=== PATIENT | male | born 1945 | race Caucasian/White ===

== ENCOUNTER 2018-10-22 07:25 | Inpatient (IN) ==
--- NOTE | 2018-10-22 08:07 | History & Physical Report ---
Date of Encounter: 10/22/18 Time of Encounter: 08:06 24 Hour HP Update - Instructions Instructions: If the History and Physical is less than 30 days old and was completed prior to A.M. admission and or procedure and has NOT been updated on calendar day of procedure please complete this update prior to performing procedure. - Update Patient reports changes in Medical Condition: No Changes in examination, assessment, or condition: No Changes in Medication: No Preop tests/diagnostics Reviewed: Yes Surgery Remains Indicated: Yes Consent for Planned Operative Procedure(s) Verified: Yes
[2018-10-22] MEDS ORDERED: Albuterol 2.5 MG/3 ML NEBULIZER IH ONE (08:22)
[2018-10-22] MEDS ORDERED: CeFAZolin Syr 2,000MG/20 ML 2,000 MG/20 ML SYRINGE IVPB ONE (08:22)
[2018-10-22] MEDS ORDERED: Famotidine 20 MG/2 ML VIAL IVP ONE (08:24)
[2018-10-22] MEDS ORDERED: Celecoxib 100 MG CAPSULE PO ONE (08:25)
[2018-10-22] MEDS ORDERED: Pregabalin 75 MG CAPSULE PO ONE (08:25)
[2018-10-22] MEDS ORDERED: Acetaminophen IV 1,000 MG/100 ML INFUS..BTL IVPB ONE (08:25)
[2018-10-22] MEDS ORDERED: Ringers Solution, Lactated 1,000 ML IVC SCH ×2 (08:30→12:41)
--- NOTE | 2018-10-22 08:37 | Anesthesia Evaluation PreOp ---
Date of Encounter: 10/22/18 Time of Encounter: 08:35 - Past History Planned Operation: Left Total Shoulder Reverse Ball Cardiac History: HTN, Hyperlipidemia Pulmonary History: Smoker GEOSPATIAL SCIENTIST History: Other (Spinal Stenosis Diabetic Neuropathy) Other Medical History: Diabetes Type II, GERD, Other (CLL Stage 0 not treated) Anesthesia History: No Prior Anesthetic Complications Alcohol Use: heavy Drug use: none Medications and Allergies Allopurinol [Zyloprim 100 MG] 100 mg PO QID 08/14/18 [History] Aspirin [Adult Aspirin] 81 mg PO DAILY 08/14/18 [History] Finasteride [Proscar] 5 mg PO DAILY 08/14/18 [History] Losartan [Cozaar] 12.5 mg PO DAILY 08/14/18 [History] [place]-3 Fatty Acids [[place]-3] 660 mg PO DAILY 08/14/18 [History] Omeprazole [PriLOSEC] 20 mg PO DAILY 08/14/18 [History] Allergy/AdvReac Type Severity Reaction Status Date / Time No Known Allergies Allergy Verified 10/15/18 12:13 - Meds/Allergy Pre-op Review Medications Reviewed: Yes Allergies Reviewed: Yes Beta Blockers on Current Med List: No Anesthesia Results - Labs Laboratory Tests 10/15/18 10/15/18 12:30 12:30 Hgb 14.7 Hct 43.3 Plt Count 190 Sodium 136 Potassium 4.3 BUN 16 Creatinine 0.76 - Imaging EKG: report reviewed (SR) Anesthesia Exam O2 Sat Height 1.68 m Height 1.68 m Weight 84.822 kg Weight 84.822 kg O2 Sat by Pulse Oximetry 95 O2 Sat by Pulse Oximetry 95 Vital Signs Temp Pulse Resp BP Pulse Ox 98.0 F 65 18 166/84 95 10/22/18 07:57 10/22/18 07:57 10/22/18 07:57 10/22/18 07:57 10/22/18 07:57 Height: 5'6 Weight: 187 lbs NPO (# of Hours): MN Pain Scale: 0 - HEENT Pupil (Motor): Pupils equal, EOMI Mallampati: III Teeth: Normal Oral Opening: Less than or equal to 3 - GEOSPATIAL SCIENTIST LOC: Oriented GEOSPATIAL SCIENTIST Motor: Normal RUE, Normal LUE, Normal RLE, Normal LLE, Normal Face GEOSPATIAL SCIENTIST Sensory: Normal: RUE, LUE, Face, Deficit: RLE, LLE (paresthesia) - Cardiac Rhythm: Regular Murmur: None JVD: No Carotid Bruit: No - Pulmonary Breath Sounds: bilateral Clear Respiratory Effort: Symmetrical Anesthesia Assess/Plan ASA Score: 3 (HTN DM Tobacco CLL) Level of consciousness: Cooperative, Oriented Anesthetic Plan: General, Regional Nerve Block Regional Nerve Block Plan: Supracervical Plexus Autologous Blood: No Monitoring Plan: Standard Monitors Recovery Plan: PACU (Discussed GA, Brachial Plexus Block, agrees to proceed)
[2018-10-22] MEDS ORDERED: *HR* FentaNYL (PF) 100 MCG/2 ML VIAL ONE (08:52)
[2018-10-22] MEDS ORDERED: *HR* Propofol 200 MG/20 ML VIAL IVP ONE (08:52)
[2018-10-22] MEDS ORDERED: Lidocaine -MPF 2% 2 ML VIAL ONE (08:54)
[2018-10-22] MEDS ORDERED: Lidocaine -MPF 4% 5 ML AMPUL ONE (08:56)
[2018-10-22] MEDS ORDERED: Ropivacaine/PF 0.5% 30 ML VIAL ONE (09:09)
[2018-10-22] MEDS ORDERED: Tetracaine/PF 20 MG/2 ML AMPUL ONE (09:09)
[2018-10-22] MEDS ORDERED: ROPIVACAINE/PF/NS 0.25% 1 EACH SYRINGE INTRAART ONE (09:09)
[2018-10-22] MEDS ORDERED: *HR* Midazolam HCl 2 MG/2 ML VIAL ONE (09:13)
[2018-10-22] MEDS ORDERED: Ethanol\\Acetic Acid\\Na Ace\\Ben 1,000 ML IRRIG.SOLN IR ONE (09:23)
--- NOTE | 2018-10-22 09:37 | Anesthesia Procedures ---
Date of Encounter: 10/22/18 Time of Encounter: 08:35 Procedures: Anesthesia - Nerve Block Procedure Date: 10/22/18 Time: 09:15 Pre-op Diagnosis: Left Shoulder Arthropathy Surgical Procedure: Left Total Shoulder Reverse Ball Checklist: Correct Patient Identifier Correct side: Left Blood Thinner: No Monitor Applied: EKG, BP, Pulse Oximetry Supplemental Oxygen via Nasal Cannula (L/min): 2 Sedation: Versed (mg): 1 Sedation: Fentanyl (mcg): 100 Indication: Post Op Analgesia Pre-op Neuro Deficits: No Block Type: Supraclavicular Catheter placed: No Sterile Technique: Yes Ultrasound used: Yes Anatomy identified: Yes Visual spread of Local: Yes Neuro Stimulation: No Blood on Needle Aspiration: No Smooth Injection of Local: Yes Pain with Injection of Local: No Prep: Chlorhexadine Needle: 22 x 50 mm Stimuplex Local: Tetracaine, Ropivacaine, Other Volume (cc): 30cc 0.5%/15cc 0.25% Number of Attempts: 1 Complications: None/effective block Vitals: Vital Signs/O2 Sat/Glucose, Most Current Temp Pulse Resp BP Pulse Ox 10/22/18 09:15 68 165/84 98 10/22/18 08:29 98.0 F 65 18 166/84 95 10/22/18 07:57 98.0 F 65 18 166/84 95
[2018-10-22] MEDS ORDERED: *HR* PHENYLEPHRINE 1,000 MCG/10 ML SYRINGE IVP ONE ×2 (09:56→11:11)
[2018-10-22] MEDS ORDERED: Ondansetron 4 MG/2 ML VIAL ONE (09:59)
[2018-10-22] MEDS ORDERED: Dexamethasone 4 MG/ML VIAL ONE (09:59)
[2018-10-22] MEDS ORDERED: Tranexamic Acid 1,000 MG/10 ML VIAL ONE (10:11)
[2018-10-22] MEDS ORDERED: *HR* OxyCODONE Immed Rel 5 MG TABLET PO PRN ×2 (11:21→12:41)
[2018-10-22] MEDS ORDERED: Ondansetron 4 MG/2 ML VIAL IVP ONE (11:21)
--- NOTE | 2018-10-22 11:49 | Orthopedic Operative Note ---
Date of procedure: 10/22/18 Procedure: Procedure: Left reverse total shoulder arthroplasty Preoperative diagnosis: Left shoulder cuff tear arthropathy Postoperative diagnosis: Same Surgeon: Nagi Tenorio MD Tobacco Grower: None Anesthesia: General with regional block EBL: 100 cc Components used: Tornier perform reversed 25 mm+3mm lateralized baseplate, 35x6.5mm center screw. 36 standard glenosphere, Aequalis ascend flex 3bPTC stem, Low offset +0 thick tray, Flex 36+6mm poly Complications: none Indications: This is a 73-year-old male who has long history of left shoulder pain with cuff tear arthropathy confirmed on radiographs. Pain and limitation in motion has been present and has been progressively worsening since a recent fall. 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 The patient has failed conservative treatment including anti-inflammatories, therapy and injections. The patient has elected for a left reverse shoulder replacement after failure of nonoperative treatment. The risks and benefits of the procedure were fully explained to the patient. These risks include, but are not limited to, the risk of infection, neurovascular injury, continued pain and stiffness of the shoulder, need for further surgery, DVT, PE, loss of limb and loss of life. The patient did understand all of these risks and wishes to proceed. Informed consent was then obtained. Operative procedure: The patient was brought back to the OR suite by the anesthesia staff. The patient was then placed supine on the operating table and all bony prominences were padded. The anesthesiologist then performed successful general anesthetic for the remainder of the case. The head, neck and airway were secured and protected by anesthesia. The bed was elevated about 30 degrees. The left upper extremity was then prepped and draped in the normal sterile orthopedic fashion and placed in the Trimano arm brandt. Preoperative antibiotics were then given prior to incision. A timeout was performed confirming the correct patient, site and side, procedure to be performed and any allergies. All were in agreement and we did proceed. A standard deltopectoral approach was performed. We dissected down through the skin coagulating any bleeders were encountered. The cephalic vein was then identified and taken laterally with the deltoid. Adhesions were cleared from underneath the deltoid and a brown retractor was placed. The interval between the deltoid and pectoralis was then developed and kolbel retractor was placed. A Markch retractor was then placed under the acromion. The biceps tendon was medially subluxed due to a tear of the subscapularis. The biceps was exposed and identified, and then released proximally. Soft tissue tenodesis of the remaining biceps was then performed. The lateral border of the conjoined tendon was then identified and the capsule was then released from the anterior aspect of the humerus around inferiorly to the back of the humerus. The humerus was subluxed anteriorly. The supraspinatus was completely torn from its insertion. Moderate cartilage loss was present on the humeral head. Osteophytes were present and removed removed. A humeral osteotomy was then performed, and the humerus was sounded and broached to the appropriate size. Attention was then turned to the glenoid. The humerus was subluxed posteriorly and retractors were placed on the anterior and posterior aspects of the glenoid. There was a posterior superior wear pattern of the glenoid with moderate cartilage loss. The axillary nerve was palpated and protected throughout the case. Labral debridement was then performed. A central guide pin was placed in the appropriate position on the glenoid. Central drill hole was drilled and the glenoid was then reamed in accordance with the [employer] perform reverse shoulder system. The glenoid baseplate was screwed in place and 4 peripheral drill holes were drilled and filled with the appropriate length screws. The final glenosphere was then impacted and the glenoid sphere screw was tightened in place. Attention was turned back to the humerus. The humerus was subluxed back anteriorly and a trial humeral stem, tray and poly trials were placed. Trial humeral reverse trays and poly were then placed sequentially until the most appropriate size was identified. The trial size +6 mm poly was tested and had excellent range of motion, and stability was verified. The final component was assembled on the back table and then inserted, and the shoulder was reduced. Again the shoulder was taken through range of motion and there was excellent range of motion and stability. The deltopectoral interval was tagged with 2-0 surgilon, and the incision was closed with 2-0 stratafix deep and a running 3-0 stratafix subcuticular. Sterile dressing was placed, the arm was placed in a sling and the patient was taken to the PACU in stable condition. There were no complications during the case. Post op plan: The patient will go into the reverse shoulder protocol. Was there an assistant boys track coach present: No Estimated blood loss (cc): 100
--- NOTE | 2018-10-22 12:29 | Anesthesia Evaluation Post Op ---
Date of Encounter: 10/22/18 Time of Encounter: 12:30 - Vital Signs Vital Signs: Vital Signs/O2 Sat/Glucose, Most Current Temp Pulse Resp BP Pulse Ox 10/22/18 12:27 97.1 F L 58 12 151/83 98 10/22/18 12:17 97.7 F 55 12 146/71 99 10/22/18 12:07 60 12 162/86 99 10/22/18 11:57 60 12 160/87 100 10/22/18 11:47 97.5 F L 63 10 164/74 100 10/22/18 09:35 62 158/79 98 10/22/18 09:15 68 165/84 98 - Lungs Lungs: Clear Ascult./Percussion - Airway Airway: Non-obstructed - Cardiovascular Regular Rate - Mental Status Mental Status: Alert & Oriented, Answers Appropriately - Pain Pain Scale: 0 - Nausea Vomiting Nausea Vomiting: Not Present - Hydration Hydration: Ice chips - Discharge PostOp Status: Transfer Patient to floor
[2018-10-22] MEDS ORDERED: traMADol 50 MG TABLET PO PRN (12:41)
[2018-10-22] MEDS ORDERED: Sennosides 8.6 MG TABLET PO PRN (12:41)
[2018-10-22] MEDS ORDERED: Ondansetron 4 MG/2 ML VIAL IVP PRN (12:41)
[2018-10-22] MEDS ORDERED: MOM Conc 10 ML UD.LIQ PO PRN (12:41)
[2018-10-22] MEDS ORDERED: *HR* OxyCODONE/APAP 5/325 TABLET PO PRN (12:41)
[2018-10-22] MEDS ORDERED: Temazepam 15 MG CAPSULE PO PRN (12:41)
[2018-10-22 16:34] VITALS: BP 151/74
[2018-10-22] MEDS ORDERED: *HR* Metformin 500 MG TABLET PO SCH (17:00)
[2018-10-22] MEDS ORDERED: *HR* Enoxaparin 30 MG/0.3 ML SYRINGE SQ ONE (17:16)
[2018-10-23] MEDS ORDERED: *HR* Enoxaparin 30 MG/0.3 ML SYRINGE SQ SCH (06:00)
[2018-10-23] MEDS ORDERED: Aspirin Enteric Coated 81 MG Tablet PO SCH (09:00)
[2018-10-23] MEDS ORDERED: Losartan/HCTZ 50-12.5 TABLET PO SCH (09:00)
[2018-10-23] MEDS ORDERED: Finasteride 5 MG TABLET PO SCH (09:00)
== END 2018-10-22 18:03 | disposition home or self-care (01) | DRG 483 ==
LOC: SAMDAY 07:25 → 3NENU 12:26
PROVIDERS: ADMIT Orthopaedic Surgery Sports Medicine; ATTEND Orthopaedic Surgery Sports Medicine